=== PATIENT | female | born 1990 | race Native Hawaiian/Other Pacific Islander ===

== ENCOUNTER 2017-02-01 07:44 | Outpatient (CLI) | payer OTHER | END 2017-02-01 19:45 | disposition home or self-care (01) | LOC: RESP 07:44 | DX: R01.1 Cardiac murmur, unspecified (principal) | CPT/HCPCS: 93306 ==

== ENCOUNTER 2017-04-20 15:16 | Outpatient (CLI) | payer OTHER ==
[2017-04-20 15:41] LABS: PLATELET COUNT 299 K/uL (152-353)
== END 2017-04-20 19:10 | disposition home or self-care (01) ==
LOC: LABW 15:16
PROVIDERS: Family Medicine
DX: E03.8 Other specified hypothyroidism (principal); D64.89 Other specified anemias; L65.8 Other specified nonscarring hair loss
CPT/HCPCS: 36415; 84439; 84443; 85027

== ENCOUNTER 2017-05-01 11:01 | Outpatient (CLI) | payer OTHER ==
[2017-05-01 11:31] LABS: PLATELET COUNT 286 K/uL (152-353)
[2017-05-01 11:57] LABS: SODIUM 128 mmol/L (136-145)
== END 2017-05-01 19:36 | disposition home or self-care (01) ==
LOC: LABW 11:01
PROVIDERS: Internal Medicine Gastroenterology
DX: E10.65 Type 1 diabetes mellitus with hyperglycemia (principal); D64.89 Other specified anemias; K86.1 Other chronic pancreatitis; Z86.39 Personal history of other endocrine, nutritional and metabolic disease
CPT/HCPCS: 36415; 80053; 82150; 82728; 83036; 83540; 83550; 83690; 85027

== ENCOUNTER 2020-12-06 13:27 | Outpatient (CLI) | payer OTHER | END 2020-12-06 19:34 | disposition home or self-care (01) | LOC: RAD 13:27 | PROVIDERS: ATTEND Nurse Practitioner | DX: M25.532 Pain in left wrist (principal) ==